=== PATIENT | female | born 1970 | race Caucasian/White ===

== ENCOUNTER 2018-07-03 13:43 | Emergency (ER) | payer MEDICARE, MEDICAID ==
[~2018-07-03] VITALS: Ht 162.6 cm; Wt 106.6 kg
[~2018-07-03 13:43] MED LIST: ACETAMINOPHEN325 M1 PO; ALPRAZOLAM 0.50.5 MG PO; ALPRAZOLAM ER2 MG PO; ATORVASTATIN CA10 MG PO; CLONAZEPAM 1 MG1 M1; COUMADIN 5 MG TA5 M1 PO; COZAAR 25 MG TA25 M2 PO; COZAAR 50 MG TA50 M2 PO; CYCLOBENZAPRINE10 MG PO; ENOXAPARIN120 MG/0.8 SQ; FLUOXETINE HCL20 M1 PO; GLUCOPHAGE500 MG PO; HYDROCODON-ACE1 EAC7 PO; HYZAAR 50-12.51 EACH PO; IBUPROFEN 600600 M1 PO; LISINOPRIL2.5 MG PO; LOVENOX SC; LOVENOX SQ; METFORMIN HCL500 MG PO; MOBIC15 MG PO; NORCO 5-325 TA1 EACH PO; PRIMATENE; PROAIR HFA8.5 GM; PROMETHAZINE HC25 M1 PO; REMERON15 MG PO; SUMATRIPTAN SU100 MG PO
[2018-07-03] MEDS ORDERED: VENTOLIN HFA 1818 GM INH ×2 (14:01→15:07)
[2018-07-03] MEDS ORDERED: REMERON15 MG PO (14:01)
[2018-07-03] MEDS ORDERED: ESKALITH CR450 MG PO (14:01)
[2018-07-03] MEDS ORDERED: ROBITUSSIN100 MG/53 PO (15:07)
[2018-07-03] MEDS ORDERED: PREDNISONE50 MG PO (15:07)
[2018-07-03] MEDS ORDERED: ZPAK PO (15:07)
[2018-07-03 15:20] VITALS: BP 125/73
== END 2018-07-03 15:21 | disposition home or self-care (01) ==
LOC: M.ERS 13:43
DX: J40 Bronchitis, not specified as acute or chronic (principal); I10 Essential (primary) hypertension; E11.9 Type 2 diabetes mellitus without complications; F17.210 Nicotine dependence, cigarettes, uncomplicated; Z90.710 Acquired absence of both cervix and uterus; Z86.718 Personal history of other venous thrombosis and embolism; Z98.890 Other specified postprocedural states

== ENCOUNTER 2018-12-23 16:13 | Inpatient (IN) | payer MEDICARE, MEDICAID ==
[~2018-12-23] VITALS: Ht 162.6 cm; Wt 104.3 kg
[~2018-12-23 16:13] MED LIST changes: +ESKALITH CR450 MG PO; +PREDNISONE50 MG PO; +ROBITUSSIN100 MG/53 PO; +VENTOLIN HFA 1818 GM INH; +ZPAK PO
[2018-12-23 16:45] VITALS: BP 153/91
[2018-12-23] MEDS ORDERED: ADVAIR HFA 230M12 GM INH (16:49)
[2018-12-23] MEDS ORDERED: COUMADIN7.5 MG PO (16:49)
[2018-12-23] MEDS ORDERED: LANTUS100 UNIT/M SUBQ (16:50)
[2018-12-23] MEDS ORDERED: HYDROXYZINE HCL25 M1 PO (16:50)
[2018-12-23 17:24] LABS: URINE BILIRUBIN NEGATIVE (Negative); URINE BLOOD NEGATIVE (Negative); URINE CLARITY CLEAR; URINE COLOR YELLOW; URINE GLUCOSE-RANDOM 3+ (Negative); URINE KETONES NEGATIVE (Negative); URINE LEUKOCYTES-REFLEX NEGATIVE (Negative); URINE NITRITE-REFLEX NEGATIVE (Negative); URINE PROTEIN NEGATIVE (Negative); URINE SPECIFIC GRAVITY <= 1.005 (1.005-1.030); URINE UROBILINOGEN 0.2 E.U./dl (0.2-1.0)
[2018-12-23 17:25] LABS: ABSOLUTE BASOPHILS 0.1 thou/uL (0.0-0.2); ABSOLUTE EOSINOPHILS 0.6 thou/uL (0.0-0.7); ABSOLUTE LYMPHOCYTES 1.7 thou/uL (0.8-5.3); ABSOLUTE MONOCYTES 0.3 thou/uL (0.0-1.2); ABSOLUTE NEUTROPHILS 6.3 thou/uL (1.6-8.1); EOSINOPHILS 6.5 %; HEMATOCRIT 43.8 % (37.0-47.0); LYMPHOCYTES 19.2 %; MCH 29.7 pg (26.0-34.0); MCHC 34.2 g/dL (28.0-37.0); MCV 86.7 fL (80.0-100.0); MONOCYTES 3.9 %; MPV 8.7 fl. (7.2-11.1); NUCLEATED RBCS 0 /100WBC; PLATELET COUNT* 243 thou/uL (150-400); POLYS 69.4 %; RBC 5.05 mil/uL (4.20-5.00); RDW-CV 12.7 % (10.5-14.5)
[2018-12-23 17:34] LABS: APTT 40.3 Seconds (25.0-31.3); INR 3.2; PROTIME 32.6 Seconds (9.20-11.50)
[2018-12-23 17:44] LABS: ALBUMIN 3.1 g/dL (3.4-5.0); CALCIUM 9.1 mg/dL (8.5-10.1); POTASSIUM 4.2 mmol/L (3.5-5.1); TOTAL BILIRUBIN 0.1 mg/dL (<0.1-1.0); TOTAL PROTEIN 7.1 g/dL (6.4-8.2)
[2018-12-23] MEDS ORDERED: OZEMPIC0.25 MG/0. SUBQ (20:15)
[2018-12-23] MEDS ORDERED: BASAGLAR K100 UNIT/1 SUBQ (20:16)
[2018-12-23 20:45] VITALS: BP 152/90
[2018-12-23 21:00] VITALS: BP 119/73
[2018-12-24 00:30] VITALS: BP 125/76
[2018-12-24 04:11] LABS: INR 3.3; PROTIME 33.9 Seconds (9.20-11.50)
[2018-12-24 04:15] LABS: ABSOLUTE BASOPHILS 0.1 thou/uL (0.0-0.2); ABSOLUTE EOSINOPHILS 0.6 thou/uL (0.0-0.7); ABSOLUTE LYMPHOCYTES 2.3 thou/uL (0.8-5.3); ABSOLUTE MONOCYTES 0.4 thou/uL (0.0-1.2); ABSOLUTE NEUTROPHILS 5.2 thou/uL (1.6-8.1); BASOPHILS 0.8 %; EOSINOPHILS 7.3 %; HEMATOCRIT 39.9 % (37.0-47.0); HEMOGLOBIN 13.8 gm/dL (12.0-15.0); LYMPHOCYTES 27.1 %; MCH 30.1 pg (26.0-34.0); MCHC 34.7 g/dL (28.0-37.0); MCV 86.8 fL (80.0-100.0); MONOCYTES 4.7 %; MPV 8.7 fl. (7.2-11.1); NUCLEATED RBCS 0 /100WBC; PLATELET COUNT* 231 thou/uL (150-400); POLYS 60.1 %; RDW-CV 12.8 % (10.5-14.5); WBC 8.6 thou/uL (4.0-11.0)
[2018-12-24 04:16] LABS: CALCIUM 8.3 mg/dL (8.5-10.1); CREATININE 0.8 mg/dL (0.6-1.3); POTASSIUM 3.8 mmol/L (3.5-5.1)
[2018-12-24 04:33] VITALS: BP 135/80
[2018-12-24 08:00] VITALS: BP 142/93
--- NOTE | 2018-12-24 10:41 | EKG ---
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
[2018-12-24 12:00] VITALS: BP 125/86
[2018-12-24 16:30] VITALS: BP 123/72
[2018-12-24 20:00] VITALS: BP 166/93
[2018-12-25 02:06] LABS: GLYCOHEMOGLOBIN (HGB A1C) 14.9 % (4.8-5.6)
[2018-12-25 04:44] LABS: PROTIME 17.4 Seconds (9.20-11.50)
[2018-12-25 05:33] LABS: INR 1.7
[2018-12-25 08:20] VITALS: BP 121/82
[2018-12-25 10:19] VITALS: BP 121/82
[2018-12-25] MEDS ORDERED: NOVOLOG100 UNIT/1 SUBQ (10:44)
[2018-12-25 12:00] VITALS: BP 121/82
== END 2018-12-25 12:00 | disposition home or self-care (01) | DRG 637 ==
LOC: M.ERS 16:13 → M.3W 18:24 → M.TBA-ER 18:24 → M.3W 20:59
PROVIDERS: Physician Assistant; ADMIT Internal Medicine
DX: E11.00 Type 2 diabetes mellitus with hyperosmolarity without nonketotic hyperglycemic-hyperosmolar coma (NKHHC) (principal); G93.41 Metabolic encephalopathy; D68.51 Activated protein C resistance; E87.1 Hypo-osmolality and hyponatremia; D68.59 Other primary thrombophilia; K76.0 Fatty (change of) liver, not elsewhere classified; H11.30 Conjunctival hemorrhage, unspecified eye; I10 Essential (primary) hypertension; E11.65 Type 2 diabetes mellitus with hyperglycemia; F31.9 Bipolar disorder, unspecified; Z98.891 History of uterine scar from previous surgery; Z90.710 Acquired absence of both cervix and uterus; Z86.718 Personal history of other venous thrombosis and embolism; Z86.711 Personal history of pulmonary embolism; Z79.4 Long term (current) use of insulin